=== PATIENT | female | born 1980 | race Caucasian/White ===

== ENCOUNTER 2016-08-22 00:11 | Emergency (ER) | payer SELFPAY ==
[~2016-08-22] VITALS: Ht 149.9 cm; Wt 84.0 kg
[2016-08-22 00:37] VITALS: Ht 149.9 cm; Wt 84.0 kg
[2016-08-22] MEDS ORDERED: BEN50 PO (01:16)
[2016-08-22] MEDS ORDERED: DEXAMETHASONE 10 MG/ML 1 ML INJ IM ONE (01:30)
[2016-08-22] MEDS ORDERED: DIPHENHYDRAMINE 50 MG CAP PO ONE (01:30)
--- NOTE | 2016-08-22 07:36 | ERD ---
DATE OF SERVICE: HISTORY OF PRESENT ILLNESS: The patient is a 36-year-old female coming in complaining of hives and lip swelling that started earlier today. She has had no shortness of breath. She has never had a rash like this before. She does not know what caused the allergic reaction and no vomiting. No abdominal pain. PAST MEDICAL HISTORY: Denies any other medical problems. ALLERGIES: DENIES ALLERGIES TO MEDICATIONS. PAST SURGICAL HISTORY: . HOSPITALIZATIONS: Denies. REVIEW OF SYSTEMS: A 12-point review of systems was done. Refer to HPI for positives, all other systems negative. PHYSICAL EXAMINATION VITAL SIGNS: Temperature is 98.8, pulse is 114, blood pressure is 89/59, respiratory 18, O2 saturation 97% on room air. Pain intensity is 6/10. GENERAL: The patient is well-appearing, well-nourished, no acute distress. HEENT: Atraumatic. Conjunctivae are pink. Pupils equal, round, and reactive to light. There is no scleral icterus. Tympanic membranes clear bilaterally. Oropharynx clear. No nystagmus or photophobia. Mild swelling of the lips with no swelling to the tongue. The patient is tolerating oral secretions. There is no muffled voice. The patient is not tripoding. There was no stridor. CHEST: Clear to auscultation bilaterally. There are no rales, wheezes or rhonchi. HEART: Regular rate and rhythm. No murmurs, clicks, rubs or gallops. No S3 or S4. ABDOMEN: Soft, nontender and nondistended. Good bowel sounds. No rebound or guarding. No gross peritonitis. No gross organomegaly or masses. No Stanley sign or McBurney point tenderness. SKIN: The patient has diffuse hives seen on skin exam. EMERGENCY ROOM COURSE: The patient given Benadryl and Decadron in the ER. DIAGNOSIS: Hives, allergic reaction unspecified. MEDICAL DECISION MAKING: I have low suspicion for anaphylaxis, low suspicion for a life threatening rash. The patient's vitals are stable. The patient is nontoxic appearing. I felt the patient was stable for outpatient discharge. DISCHARGE: The patient is discharged stable. Patient given prescription for Benadryl and told to follow up with primary care within 1 to 2 days for reevaluation. The patient was told if her symptoms worsen or progress to return to the ER. All other questions answered at time of discharge. Discharge summary given at the time of departure, the patient understood and complied with plan. Dictated By: MECCA CAMPOS PA for [facility]/NTS Conf#: [id number] DID#: [id number] CC: AURE BUSCH MD;*EndCC* MTDD
== END 2016-08-22 01:25 | disposition home or self-care (01) ==
LOC: FTE 00:11
DX: L50.0 Allergic urticaria (principal)
CPT/HCPCS: 96372; J1100